=== PATIENT | female | born 1985 | race Caucasian/White ===

== ENCOUNTER 2016-08-11 19:02 | Emergency (ER) | payer BC ==
[2016-08-11 21:04] VITALS: BP 118/70
[2016-08-11] MEDS ORDERED: Acetaminophen TAB* 325 MG PO ONE (21:17)
--- NOTE | 2016-08-11 21:17 | UC ---
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 - History of Current Complaint Chief Complaint: UCGeneralIllness Stated Complaint: SORE THROAT Time Seen by Provider: 08/11/16 21:05 Hx Obtained From: Patient Hx Last Menstrual Period: 32 DAYS AGO ?: No Onset/Duration: Sudden Onset, Lasting Hours, Still Present Severity: Moderate Pain Intensity: 5 Pain Scale Used: 0-10 Numeric Cough: None Associated Signs & Symptoms: Positive: Fever - Allergies/Home Medications Allergies/Adverse Reactions: Allergies Allergy/AdvReac Type Severity Reaction Status Date / Time No Known Allergies Allergy Verified 08/11/16 21:04 Home Medications: Home Medications Ligaplex 2 tab PO TID 08/11/16 [History Confirmed 08/11/16] PMH/Surg Hx/FS Hx/Imm Hx Previously Healthy: Yes - Surgical History Surgical History: Yes Surgery Procedure, Year, and Place: wisdom teeth 2006~ - Family History Known Family History: Positive: None Family History: no cardiovascular issues reported in family lineage - Social History Occupation: Employed Full-time - teacher Lives: With Family Alcohol Use: Weekly Substance Use Type: None Smoking Status (MU): Never Smoked Tobacco - Immunization History Most Recent Influenza Vaccination: fall 2015 Vaccination Up to Date: Yes Review of Systems Constitutional: Chills, Fatigue Skin: Negative Eyes: Negative ENT: Sore Throat Respiratory: Negative Cardiovascular: Negative Gastrointestinal: Negative Genitourinary: Negative Motor: Negative Neurovascular: Negative Musculoskeletal: Negative Neurological: Negative Psychological: Negative All Other Systems Reviewed And Are Negative: Yes Physical Exam Triage Information Reviewed: Yes Appearance: Ill-Appearing - mild, Pain Distress - mild, Thin Vital Signs: Initial Vital Signs Temp 99.5 F 08/11/16 20:55 Pulse 100 08/11/16 20:55 Resp 24 08/11/16 20:55 BP 118/70 08/11/16 20:55 Pulse Ox 100 08/11/16 20:55 Eye Exam: Normal Eyes: Positive: Conjunctiva Clear ENT Exam: Normal ENT: Positive: Hearing grossly normal, Pharyngeal erythema, TMs normal. Negative: Nasal congestion, Nasal drainage, Tonsillar swelling, Tonsillar exudate, Trismus, Muffled/hoarse voice Dental Exam: Normal Neck exam: Normal Neck: Positive: Supple, Nontender, No Lymphadenopathy Respiratory Exam: Normal Respiratory: Positive: Chest non-tender, Lungs clear, Normal breath sounds, No respiratory distress, No accessory muscle use Cardiovascular Exam: Normal Cardiovascular: Positive: RRR, No Murmur, Pulses Normal, Brisk Capillary Refill Musculoskeletal Exam: Normal Musculoskeletal: Positive: Strength Intact, ROM Intact, No Edema Neurological Exam: Normal Neurological: Positive: Alert, Muscle Tone Normal, Fatigued Psychological Exam: Normal Skin Exam: Normal Diagnostics - Laboratory Diagnostic Studies Completed/Ordered: u preg (-), rst (-) Throat Pain/Nasal Course/Dx - Course Course Of Treatment: ibuprofen, rest increase fluids, follow with pcp re-check prn - Differential Dx/Diagnosis Differential Diagnosis/HQI/PQRI: Influenza, Otitis Media, Pharyngitis, Sinusitis , URI Provider Diagnoses: URI, Viral syndrome Discharge - Discharge Plan Condition: Stable Disposition: HOME Patient Education Materials: Acetaminophen (By mouth), Ibuprofen (By mouth), Viral Syndrome (ED) Forms: *Work Release Referrals: Miladis Coronado MD [Primary Care Provider] - 3 Days
== END 2016-08-11 22:03 | disposition home or self-care (01) ==
LOC: UCCORT 19:02
DX: J06.9 Acute upper respiratory infection, unspecified (principal); B34.9 Viral infection, unspecified; Z32.02 Encounter for pregnancy test, result negative
CPT/HCPCS: 81025; 87502; 87651; 99212; A9270-GY; G0463

== ENCOUNTER 2016-08-17 17:56 | Emergency (ER) | payer BC ==
[2016-08-17 20:41] VITALS: BP 120/85
[2016-08-17] MEDS ORDERED: Benzonatate CAP* 100 MG PO ONE (21:10)
[2016-08-17] MEDS ORDERED: Azithromycin TAB* 250 MG PO ONE (21:10)
--- NOTE | 2016-08-17 21:16 | UC ---
Respiratory Complaint HPI - HPI Summary HPI Summary: 31 yo female ill x 8 days started with sore throat progressed to laryngitis and severe cough cough worse when talking gets dyspneic with coughing fits no n/v/d - History of Current Complaint Chief Complaint: UC Stated Complaint: SINUS/COUGH SEEN ON 2 Time Seen by Provider: 08/17/16 21:03 Hx Obtained From: Patient Hx Last Menstrual Period: 08/13/16 Onset/Duration: Gradual Onset, Lasting Days - 8 Timing: Constant Severity Initially: Mild Severity Currently: Moderate Pain Intensity: 4 Pain Scale Used: 0-10 Numeric Character: Cough: Nonproductive Aggravating Factors: Exertion, Deep Breaths Alleviating Factors: Nothing Associated Signs And Symptoms: Positive: Nasal Congestion, Hoarseness - Allergies/Home Medications Allergies/Adverse Reactions: Allergies Allergy/AdvReac Type Severity Reaction Status Date / Time No Known Allergies Allergy Verified 08/17/16 20:34 Home Medications: Home Medications Chlorpheniramine-Phenylephrine [[place] Plus Cold] 2 tab PO PRN 08/17/16 [ History] PMH/Surg Hx/FS Hx/Imm Hx Previously Healthy: Yes - Surgical History Surgical History: Yes Surgery Procedure, Year, and Place: wisdom teeth 2007~ - Family History Known Family History: Positive: Hypertension Family History: no cardiovascular issues reported in family lineage - Social History Alcohol Use: Weekly Substance Use Type: None Smoking Status (MU): Never Smoked Tobacco - Immunization History Most Recent Influenza Vaccination: fall 2015 Vaccination Up to Date: Yes Review of Systems Constitutional: Negative Skin: Negative Eyes: Negative ENT: Nasal Discharge Respiratory: Cough Cardiovascular: Negative Gastrointestinal: Negative Genitourinary: Negative Motor: Negative Neurovascular: Negative Musculoskeletal: Negative Neurological: Negative Psychological: Negative All Other Systems Reviewed And Are Negative: Yes Physical Exam Triage Information Reviewed: Yes Appearance: Well-Appearing, No Pain Distress, Well-Nourished Vital Signs: Initial Vital Signs Temp 98.2 F 08/17/16 20:36 Pulse 73 08/17/16 20:36 Resp 20 08/17/16 20:36 BP 120/85 08/17/16 20:36 Pulse Ox 100 08/17/16 20:36 Vital Signs Reviewed: Yes Eyes: Positive: Conjunctiva Clear ENT: Positive: Hearing grossly normal, TMs normal, Muffled/hoarse voice - hoarse. Negative: Nasal congestion, Nasal drainage, Tonsillar exudate, Trismus Dental: Negative: Gross Decay/Caries @, Dental Fracture @, Abscess @ Neck: Positive: Supple, Nontender Respiratory: Positive: Lungs clear, Normal breath sounds, No respiratory distress Cardiovascular: Positive: RRR, No Murmur Abdomen Description: Positive: Nontender, No Organomegaly, Soft Musculoskeletal Exam: Normal Musculoskeletal: Positive: ROM Intact, No Edema Neurological: Positive: Alert Psychological Exam: Normal Skin Exam: Normal UC Diagnostic Evaluation - Laboratory O2 Sat by Pulse Oximetry: 100 - normal/not hypoxic Respiratory Course/Dx - Differential Dx/Diagnosis Provider Diagnoses: bronchitis/laryngitis Discharge - Discharge Plan Condition: Stable Disposition: HOME Prescriptions: Azithromycin TAB* [Zithromax TAB*] 250 mg PO DAILY #4 tab Benzonatate CAP* [Tessalon CAP*] 100 - 200 mg PO TID PRN #28 cap PRN Reason: Cough Patient Education Materials: Acute Bronchitis (ED) Forms: *Work Release Referrals: Miladis Coronado MD [Primary Care Provider] - 5 Days (if not better)
== END 2016-08-17 21:23 | disposition home or self-care (01) ==
LOC: UCCORT 17:56
DX: J40 Bronchitis, not specified as acute or chronic (principal); J04.0 Acute laryngitis
CPT/HCPCS: 99212; A9270-GY; G0463

== ENCOUNTER 2018-12-21 09:08 | Emergency (ER) | payer BC ==
[2018-12-21 09:45] VITALS: BP 120/74
== END 2018-12-21 10:10 | disposition left against medical advice (07) ==
LOC: UCCORT 09:08
DX: J34.89 Other specified disorders of nose and nasal sinuses (principal); Z53.21 Procedure and treatment not carried out due to patient leaving prior to being seen by health care provider